=== PATIENT | male | born 1960 | race Two or more races ===

== ENCOUNTER → 2025-07-18 | Outpatient (CLI) | payer MEDICAID, SELFPAY ==
--- NOTE | 2025-07-18 | XR_ITS ---
Examination: Lumbar spine, 5 views Technique: Lumbar spine AP, lateral, coned lateral lower lumbar spine, bilateral obliques 5 views Exam date and time: July 18, 2025 1113 hours, comparison January 06, 2022 INDICATIONS: Back pain one year. FINDINGS: Severe osteopenia. Advanced diffuse facet arthropathy Moderate bilateral hip osteoarthritis No acute lumbar fracture Advanced disc narrowing L5-S1 IMPRESSION: Advanced degenerative disc disease L5-S1
== END | disposition home or self-care (01) ==
PROVIDERS: PCP Nurse Practitioner Family; Referring Provider Nurse Practitioner Family; Visit Provider Nurse Practitioner Family
DX: M54.50 Low back pain, unspecified (principal); M51.370 Other intervertebral disc degeneration, lumbosacral region with discogenic back pain only
CPT/HCPCS: 72110

== ENCOUNTER → 2025-08-12 | Outpatient (CLI) | payer MEDICAID, SELFPAY ==
--- NOTE | 2025-08-12 11:00 | XR_ITS ---
Examination: Abdomen sonogram, complete Date and time of exam: August 12, 2025, 10:40 a.m. INDICATIONS: Abdominal pelvic pain beginning 1 month ago. Technique: Multiple real-time grayscale transabdominal sonographic images of the abdomen have been obtained. Findings: Normal gallbladder. Normal common bile duct 0.3 cm Pancreatic head 2.8 cm Aorta not enlarged. Liver 18.8 cm fatty infiltration Normal hepatopetal portal venous flow Patent IVC Right kidney 10.4 cm renal cortex 1.4 cm Left kidney 11.2 cm renal cortex 1.8 cm 29 mm upper pole left renal cyst Mild renal scarring Spleen 10.1 cm IMPRESSION: Normal gallbladder Normal common bile duct Moderate hepatomegaly
--- NOTE | 2025-08-12 11:30 | XR_ITS ---
Examination: Pelvic ultrasound, transabdominal, complete Technique: Transabdominal ultrasound of the pelvis performed using grayscale imaging Date and time of exam: August 12, 2025, 11:00 a.m. INDICATIONS: Abdominal pelvic pain beginning 1 month ago FINDINGS: Prostate 2.6 x 3.5 x 3.5 cm volume 17 cc no prostate nodules No bladder mass or bladder calculi, bladder prevoid volume 294 cc Prostate calcifications IMPRESSION: No significant prostatomegaly No prostate nodules
== END | disposition home or self-care (01) ==
PROVIDERS: PCP Nurse Practitioner Family; Referring Provider Physician Assistant Medical; Visit Provider Physician Assistant Medical
DX: R16.0 Hepatomegaly, not elsewhere classified (principal)
CPT/HCPCS: 76700; 76856

== ENCOUNTER → 2025-10-03 | Outpatient (CLI) | payer MEDICAID, SELFPAY ==
--- NOTE | 2025-10-03 13:40 | XR_ITS ---
Examination: Bone densitometry Date and time of exam: October 03, 2025, 1416 hours INDICATIONS: Diabetic, 65-year-old male with diagnosis age-related osteoporosis Technique: Lumbar spine and hip total bone mineralization values of an calculated. Peak reference and age match control results have been displayed. Findings: Lumbar spine total bone mineralization is 0.993 gm/cm2. This is 0.9 standard deviations below peak reference. This is 0.2 standard deviations below age-matched controls. Hip total bone mineralization is 0.845 gm/cm2 This is 1.6 standard deviations below peak reference. This is 1.1 standard deviations below age-matched controls Impression: There is normal mineralization based on lumbar spine measurements. There is osteopenia based on hip measurements
== END | disposition home or self-care (01) ==
LOC: CDIM 13:46
PROVIDERS: Referring Provider Nurse Practitioner Family; Visit Provider Nurse Practitioner Family
DX: M85.88 Other specified disorders of bone density and structure, other site (principal)
CPT/HCPCS: 77080